=== PATIENT | female | born 1970 | race Caucasian/White ===

== ENCOUNTER 2017-06-08 11:21 | Day surgery (SDC) | payer BC ==
[~2017-06-08 11:21] MED LIST: Acetaminophen TAB* 325 MG PO PRN; Buffered Lidocaine 0.9% SYRIN* 5 ML/SYR SYRINGE INTRADERM ONE; DiMENhydriNATE IV* 50 MG/ML VIAL IV PUSH PRN; Famotidine IV* 10 MG/ML 2 ML (20 mg) IV ONE; Ketorolac INJ* 30 MG/ML 1 ML VIAL ONE; Lidocaine 2% PF * 5 ML VIAL ONE; Midazolam* 1 MG/ML 2 ML VIAL (2 MG) ONE; Naloxone* 0.4 MG/ML 1 ML VIAL IV PRN; Ondansetron INJ* 2 MG/ML VIAL ONE; Propofol* 10 MG/ML 20 ML BTL IV PUSH ONE; fentaNYL* 50 MCG/ML 2 ML VIAL (100 MCG VIAL) ONE
[2017-06-08] MEDS ORDERED: Buffered Lidocaine 0.9% SYRIN* 5 ML/SYR SYRINGE ONE (11:25)
[2017-06-08] MEDS ORDERED: Famotidine IV* 10 MG/ML 2 ML (20 mg) ONE (11:25)
[2017-06-08] MEDS ORDERED: Bupivacaine 0.25% SDV* 30 ML ONE (12:19)
[2017-06-08 13:31] VITALS: BP 116/62
--- NOTE | 2017-06-13 12:29 | OP ---
DATE OF OPERATION: 06/08/17 - [facility] DATE OF : 66 SURGEON: Edwardo Hilliard MD RAILROAD [employer]STRUCTION DIRECTOR: JOSIAS Riley ANESTHESIA: Local MAC. PRE-OP DIAGNOSIS: Right carpal tunnel syndrome. POST-OP DIAGNOSIS: Right carpal tunnel syndrome. OPERATIVE PROCEDURE: Right open carpal tunnel release. INDICATIONS: Marsha has had progressive bilateral carpal tunnel syndrome electrodiagnostically and clinically. She has had nonoperative treatment. We talked about risks and benefits. She wanted to proceed. ESTIMATED BLOOD LOSS: 2 mL. COMPLICATIONS: None. FINDINGS: As expected. DESCRIPTION OF PROCEDURE: Marsha was seen in the preoperative holding area. The correct side, site, and procedure were identified. We came back to the operating room. The arm was prepped and draped in the usual fashion. Marcaine had been injected. I made a 2 to 3 cm longitudinal incision in the standard location for an open carpal tunnel release. Dissection was carried down to the palmar fascia and subcutaneous tissue. The transverse carpal ligament was released just off the radial aspect of the hook of the hamate. The release continued distally and proximally with the tenotomy scissors. Once there was absolutely no compression on the nerve and everything was looking good, we irrigated out the wound. Skin was closed with 4-0 nylon suture. Wound was dressed with Xeroform , 4x4s, sterile Webril, and Mc bandage. She was taken to the recovery room in stable condition. [id number]/[facility] #: [id number] MTDD
== END 2017-06-08 14:35 | disposition home or self-care (01) ==
LOC: OR 11:21
PROVIDERS: ATTEND Orthopaedic Surgery Hand Surgery
DX: G56.01 Carpal tunnel syndrome, right upper limb (principal); Z87.891 Personal history of nicotine dependence; R55 Syncope and collapse; I49.3 Ventricular premature depolarization; F41.8 Other specified anxiety disorders
CPT/HCPCS: 81025; J1885; J2250; J2405; J2704; J3010

== ENCOUNTER 2017-06-29 08:15 | Day surgery (SDC) | payer BC ==
[~2017-06-29 08:15] MED LIST changes: -Acetaminophen TAB* 325 MG PO PRN; -DiMENhydriNATE IV* 50 MG/ML VIAL IV PUSH PRN; -Famotidine IV* 10 MG/ML 2 ML (20 mg) IV ONE; -Ketorolac INJ* 30 MG/ML 1 ML VIAL ONE; -Lidocaine 2% PF * 5 ML VIAL ONE; -Midazolam* 1 MG/ML 2 ML VIAL (2 MG) ONE; -Naloxone* 0.4 MG/ML 1 ML VIAL IV PRN; -Ondansetron INJ* 2 MG/ML VIAL ONE; -Propofol* 10 MG/ML 20 ML BTL IV PUSH ONE; -fentaNYL* 50 MCG/ML 2 ML VIAL (100 MCG VIAL) ONE
[2017-06-29] MEDS ORDERED: fentaNYL* 50 MCG/ML 2 ML VIAL (100 MCG VIAL) ONE (08:57)
[2017-06-29] MEDS ORDERED: Midazolam* 1 MG/ML 2 ML VIAL (2 MG) ONE ×2 (08:57→10:01)
[2017-06-29] MEDS ORDERED: Buffered Lidocaine 0.9% SYRIN* 5 ML/SYR SYRINGE ONE (08:58)
[2017-06-29] MEDS ORDERED: Betamethasone INJ* 6 MG/ML 5 ML VIAL (30 MG) ONE (09:42)
[2017-06-29] MEDS ORDERED: Lidocaine 1% MPF* 2 ML VIAL ONE (09:43)
[2017-06-29] MEDS ORDERED: Bupivacaine 0.25% SDV* 30 ML ONE (09:43)
[2017-06-29] MEDS ORDERED: Famotidine IV* 10 MG/ML 2 ML (20 mg) ONE (10:04)
[2017-06-29] MEDS ORDERED: Propofol* 10 MG/ML 20 ML BTL IV PUSH ONE (10:04)
[2017-06-29] MEDS ORDERED: Ketorolac INJ* 30 MG/ML 1 ML VIAL ONE (10:04)
[2017-06-29] MEDS ORDERED: Dexamethasone IV* 4 MG/ML 1 ML (4 MG) ONE (10:04)
[2017-06-29] MEDS ORDERED: Lidocaine 2% PF * 5 ML VIAL ONE (10:06)
[2017-06-29] MEDS ORDERED: DiMENhydriNATE IV* 50 MG/ML VIAL IV PUSH PRN (10:19)
[2017-06-29] MEDS ORDERED: fentaNYL* 50 MCG/ML 2 ML VIAL (100 MCG VIAL) IV PRN (10:19)
[2017-06-29] MEDS ORDERED: PROCHLORPERAZINE INJ 5 MG/ML 2 ML VIAL IV PRN (10:19)
[2017-06-29] MEDS ORDERED: Naloxone* 0.4 MG/ML 1 ML VIAL IV PRN (10:19)
[2017-06-29] MEDS ORDERED: Acetaminophen TAB* 325 MG PO PRN (10:19)
[2017-06-29 11:40] VITALS: BP 125/76
--- NOTE | 2017-06-30 14:42 | OP ---
DATE OF OPERATION: 06/29/17 - [facility] DATE OF : 66 SURGEON: Edwardo Hilliard MD. SUMMER COUNSELOR: JOSIAS Riley ANESTHESIOLOGIST: Dr. Chambers ANESTHESIA: Local MAC. PRE-OP DIAGNOSES: 1. Left carpal tunnel syndrome. 2. Left trigger thumb. POST-OP DIAGNOSES: 1. Left carpal tunnel syndrome. 2. Left trigger thumb. OPERATIVE PROCEDURE: 1. Left open carpal tunnel release. 2. Left trigger thumb steroid injection. INDICATIONS: Marsha has had progressive disease. Marsha has done well with the right carpal tunnel release. We talked about risks and benefits. She wanted to proceed with left carpal tunnel release. Additionally, she is having pain in the left thumb partially related to basal joint arthritis, but also related to triggering and some tendinitis of the A1 kayla. I talked to her about doing an injection. She wants to proceed. ESTIMATED BLOOD LOSS: 2 mL. COMPLICATIONS: None. FINDINGS: As expected. DESCRIPTION OF PROCEDURE: Marsha was seen in the preoperative holding area. The correct side, site and the procedure were identified. We came back to the operating room where the arm was prepped and draped in the usual fashion. A time- out was performed. I began by exsanguinating the arm with the Esmarch and the tourniquet was inflated to 250 mmHg. I made a 2 to 3 cm incision in standard location for an open carpal tunnel release. Dissection was carried down through the subcutaneous tissue and palmar fascia. The transverse carpal ligament was released just off the radial aspect of the hook of the hamate. The release was completed distally and then proximally. So retractor was placed in the remainder of the transverse carpal ligament and the distal end of brachial fascia was released under direct visualization with the tenotomy scissors to a level of several centimeters past the wrist flexion crease. I then checked the decompression. Everything was looking good. So, we irrigated out the wounds. Skin was closed with 4-0 nylon suture and Steri-Strips. I then injected the A1 kayla of the left thumb with 1 mL of 1% plain lidocaine and 6 mg of betamethasone. The wound was then dressed with Xeroform, 4 x 4s, sterile Webril, and an Mc bandage. She was woken up and taken to the recovery room in stable condition. [id number]/[facility] #: [id number] DIVINA
== END 2017-06-29 12:15 | disposition home or self-care (01) ==
LOC: OR 08:15
PROVIDERS: ATTEND Orthopaedic Surgery Hand Surgery
DX: G56.02 Carpal tunnel syndrome, left upper limb (principal); M65.312 Trigger thumb, left thumb; R55 Syncope and collapse; Z87.891 Personal history of nicotine dependence; R00.1 Bradycardia, unspecified
CPT/HCPCS: 81025; J0702; J1100; J1885; J2250; J2704; J3010

== ENCOUNTER 2022-05-01 00:06 | Observation (INO) ==
[2022-05-01] MEDS ORDERED: Al Hydrox/Mg Hydrox/Simet LIQ 30 ML UDC PO ONE (00:24)
[2022-05-01] MEDS ORDERED: Ondansetron 4 mg VIAL 2 MG/ML 2 ml VIAL IV ONE (00:24)
[2022-05-01] MEDS ORDERED: Lactated Ringers 1000 ml BAG 1,000 ML IV ONE (00:24)
[2022-05-01] MEDS ORDERED: Famotidine IV 10 MG/ML 2 ml VIAL (20 mg) IV SLOW PU ONE (00:24)
[2022-05-01] MEDS ORDERED: Acetaminophen IV 1 GM/100ML 1,000 MG/100 ML BAG IV ONE (00:25)
[2022-05-01 01:04] LABS: ABS Lymphocytes 1.4 10^3/ul (1.0-4.8); ABS Monocytes 0.6 10^3/ul (0-0.8); ABS Neutrophils 13.8 10^3/ul (1.5-7.7); Eosinophil % 0.2 %; Hematocrit 39 % (35-47); Hemoglobin 13.2 g/dL (12.0-16.0); Mean Corpuscular HGB Conc 34 g/dL (31-36); Mean Corpuscular Hemoglobin 27 pg (27-31); Mean Corpuscular Volume 81 fL (80-97); Mean Platelet Volume 10.1 fL (7.4-10.4); Platelet Count 212 10^3/uL (150-450); Red Blood Count 4.82 10^6 /uL (3.70-4.87); Red Cell Distribution Width 13 % (10-15); White Blood Count 15.9 10^3/uL (3.5-10.8)
[2022-05-01 01:09] LABS: INR 1.04 (0.88-1.18)
[2022-05-01 01:42] LABS: Albumin 4.1 g/dL (3.2-5.2); Albumin/Globulin Ratio 1.6 (1-3); C Reactive Protein 5.8 mg/L (<8.01); Calcium 9.2 mg/dL (8.6-10.3); Creatinine, Serum 0.69 mg/dL (0.51-0.95); Globulin 2.5 g/dL (2-4); Magnesium 1.7 mg/dL (1.9-2.7); Potassium 4.2 mmol/L (3.5-5.0); Total Bilirubin 0.8 mg/dL (0.2-1.0); Total Protein 6.6 g/dL (6.4-8.9); eGFR CKD-EPI 103.1 (>60)
[2022-05-01] MEDS ORDERED: Magnesium Sulfate IV 3 GM in NS 0.9% 100 ml BAG 100 ML IVPB ONE (03:23)
[2022-05-01] MEDS ORDERED: NS 0.9% 1000 ml BAG 1,000 ML IV SCH (03:30)
[2022-05-01] MEDS: Acetaminophen IV 1 GM/100ML 1,000 MG/100 ML BAG IV SCH ×2 (07:35→13:36)
[2022-05-01] MEDS ORDERED: Pantoprazole VIAL 40 MG VIAL IV SCH (09:00)
[2022-05-01 11:28] VITALS: BP 124/84
== END 2022-05-01 17:15 | disposition home or self-care (01) ==
LOC: ED 00:06 → SUATTDRO 03:18 → INTOOBSV 03:18 → EDHOLD 03:18 → SSU 05:32
PROVIDERS: ADMIT Internal Medicine; ATTEND Internal Medicine

== ENCOUNTER 2022-06-03 20:49 | Observation (INO) ==
[2022-06-03] MEDS ORDERED: Ondansetron 4 mg VIAL 2 MG/ML 2 ml VIAL IV ONE (21:16)
[2022-06-03 21:29] LABS: ABS Eosinophils 0.2 10^3/ul (0-0.6); ABS Lymphocytes 2.8 10^3/ul (1.0-4.8); ABS Monocytes 0.6 10^3/ul (0-0.8); ABS Neutrophils 3.6 10^3/ul (1.5-7.7); Eosinophil % 2.8 %; Hematocrit 39 % (35-47); Hemoglobin 13.2 g/dL (12.0-16.0); Lymphocyte % 38.4 %; Mean Corpuscular HGB Conc 34 g/dL (31-36); Mean Corpuscular Hemoglobin 27 pg (27-31); Mean Corpuscular Volume 81 fL (80-97); Mean Platelet Volume 9.8 fL (7.4-10.4); Platelet Count 251 10^3/uL (150-450); Red Blood Count 4.84 10^6 /uL (3.70-4.87); Red Cell Distribution Width 13 % (10-15); White Blood Count 7.2 10^3/uL (3.5-10.8)
[2022-06-03 22:23] LABS: Albumin 4.4 g/dL (3.2-5.2); Albumin/Globulin Ratio 1.5 (1-3); C Reactive Protein 4.3 mg/L (<8.01); Calcium 9.5 mg/dL (8.6-10.3); Creatinine, Serum 0.66 mg/dL (0.51-0.95); Globulin 2.9 g/dL (2-4); Potassium 4.1 mmol/L (3.5-5.0); Total Bilirubin 0.5 mg/dL (0.2-1.0); Total Protein 7.3 g/dL (6.4-8.9); eGFR CKD-EPI 104.2 (>60)
[2022-06-03] MEDS ORDERED: Morphine 4 MG/ML VIAL (1 ml) IV ONE (23:30)
[2022-06-03] MEDS ORDERED: Metoclopramide 5 MG/ML VIAL (10 mg) IV ONE (23:31)
[2022-06-03] MEDS ORDERED: Metoclopramide 5 MG/ML VIAL (10 mg) ONE (23:33)
[2022-06-03] MEDS ORDERED: Lactated Ringers 1000 ml BAG 1,000 ML IV ONE (23:43)
[2022-06-04] MEDS ORDERED: Lactated Ringers 1000 ml BAG 1,000 ML IV ONE (01:15)
[2022-06-04] MEDS ORDERED: Acetaminophen IV 1 GM/100ML 1,000 MG/100 ML BAG IV PRN (02:22)
[2022-06-04] MEDS ORDERED: Ondansetron 4 mg VIAL 2 MG/ML 2 ml VIAL IV PRN (02:23)
[2022-06-04 06:54] LABS: Urine Appearance CLEAR; Urine Color Yellow; Urine Specific Gravity 1.018 (1.002-1.030)
[2022-06-04 06:55] LABS: Urine Bilirubin Negative (Negative); Urine Blood 1+ (Negative); Urine Ketones Negative (Negative); Urine Nitrite Negative (Negative)
[2022-06-04 06:56] LABS: Urine Glucose Negative (Negative); Urine Protein Negative (Negative); Urine Red Blood Cell 1+(3-5/hpf) (Absent); Urine Squamous Epithelial Cell Present (Absent); Urine Urobilinogen Negative (Negative); Urine White Blood Cell Trace(0-5/hpf) (Absent)
[2022-06-04 07:09] LABS: Urine Bacteria Absent (Absent)
[2022-06-04 07:47] LABS: ABS Eosinophils 0.1 10^3/ul (0-0.6); ABS Lymphocytes 2.3 10^3/ul (1.0-4.8); ABS Monocytes 0.6 10^3/ul (0-0.8); ABS Neutrophils 5.1 10^3/ul (1.5-7.7); Eosinophil % 1.6 %; Hematocrit 37 % (35-47); Hemoglobin 12.6 g/dL (12.0-16.0); Lymphocyte % 28.3 %; Mean Corpuscular HGB Conc 34 g/dL (31-36); Mean Corpuscular Hemoglobin 28 pg (27-31); Mean Corpuscular Volume 81 fL (80-97); Mean Platelet Volume 9.7 fL (7.4-10.4); Platelet Count 228 10^3/uL (150-450); Red Blood Count 4.55 10^6 /uL (3.70-4.87); Red Cell Distribution Width 13 % (10-15); White Blood Count 8.1 10^3/uL (3.5-10.8)
[2022-06-04 08:37] LABS: Creatinine, Serum 0.63 mg/dL (0.51-0.95); Potassium 4.2 mmol/L (3.5-5.0); eGFR CKD-EPI 105.4 (>60)
[2022-06-04 15:35] VITALS: BP 120/76
== END 2022-06-04 19:30 | disposition home or self-care (01) ==
LOC: ED 20:49 → EDHOLD 20:49 → SUATTDRO 06-04 00:26 → EDHOLD 06-04 08:52 → MED 06-04 09:02
PROVIDERS: ADMIT Internal Medicine; ATTEND Hospitalist

== ENCOUNTER 2024-03-08 06:27 | Inpatient (IN) ==
[2024-03-08] MEDS: Lactated Ringers 1000 ml BAG 1,000 ML IV ONE (07:16)
[2024-03-08] MEDS: Ondansetron 4 mg VIAL 2 MG/ML 2 ml VIAL IV ONE (07:16)
[2024-03-08] MEDS: Morphine 4 MG/ML VIAL (1 ml) IV ONE (07:16)
[2024-03-08 08:07] LABS: ABS Basophils 0.1 10^3/uL (0.0-0.1); ABS Eosinophils 0.1 10^3/uL (0.0-0.5); ABS Lymphocytes 1.9 10^3/uL (1.0-4.8); ABS Monocytes 0.9 10^3/uL (0.0-0.9); ABS Neutrophils 13.1 10^3/uL (1.5-7.6); Eosinophil % 0.9 %; Hematocrit 34.9 % (35-45); Hemoglobin 11.1 g/dL (11.5-14.3); Lymphocyte % 11.6 %; Mean Corpuscular Hemoglobin 24.8 pg (27-33); Mean Corpuscular Hgb Conc 31.8 g/dL (31-36); Mean Platelet Volume 9.4 fL (7.5-11.2); Platelet Count 245 10^3/uL (150-450); Red Blood Count 4.47 10^6/uL (3.63-4.92); Red Cell Distribution Width 16.5 % (12-17); White Blood Count 16.1 10^3/uL (3.8-11.8)
[2024-03-08 08:49] LABS: Albumin 3.9 g/dL (3.2-5.2); Albumin/Globulin Ratio 1.7 (1-3); Calcium 9.3 mg/dL (8.6-10.3); Creatinine, Serum 0.69 mg/dL (0.51-0.95); Globulin 2.3 g/dL (2-4); Potassium 3.7 mmol/L (3.5-5.0); Total Bilirubin 0.5 mg/dL (0.2-1.0); Total Protein 6.2 g/dL (6.4-8.9); eGFR CKD-EPI 101.8 (>60)
[2024-03-08] MEDS: Lactated Ringers 1000 ml BAG 1,000 ML IV SCH (09:59)
[2024-03-08] MEDS: Morphine 2 MG/ML SYRINGE IV PRN ×2 (10:16→12:00)
[2024-03-08] MEDS: Ondansetron 4 mg VIAL 2 MG/ML 2 ml VIAL IV PRN (10:16)
[2024-03-08 10:31] LABS: Urine Appearance Clear; Urine Bilirubin Negative (Negative); Urine Blood Negative (Negative); Urine Color Yellow; Urine Glucose Negative (Negative); Urine Ketones Negative (Negative); Urine Nitrite Negative (Negative); Urine Protein Negative (Negative); Urine Specific Gravity 1.023 (1.002-1.030); Urine Urobilinogen Negative (Negative)
[2024-03-08] MEDS ORDERED: Morphine 2 MG/ML SYRINGE IV PRN ×2 (13:54)
[2024-03-09 09:06] LABS: ABS Eosinophils 0.3 10^3/uL (0.0-0.5); ABS Lymphocytes 2.6 10^3/uL (1.0-4.8); ABS Monocytes 0.6 10^3/uL (0.0-0.9); ABS Neutrophils 3.7 10^3/uL (1.5-7.6); Eosinophil % 3.8 %; Hematocrit 30.4 % (35-45); Hemoglobin 9.8 g/dL (11.5-14.3); Lymphocyte % 36.3 %; Mean Corpuscular Hemoglobin 25.2 pg (27-33); Mean Corpuscular Hgb Conc 32.2 g/dL (31-36); Mean Corpuscular Volume 78.1 fL (80-97); Mean Platelet Volume 9.3 fL (7.5-11.2); Platelet Count 213 10^3/uL (150-450); Red Blood Count 3.89 10^6/uL (3.63-4.92); Red Cell Distribution Width 16.6 % (12-17); White Blood Count 7.1 10^3/uL (3.8-11.8)
[2024-03-09 09:58] LABS: Calcium 8.5 mg/dL (8.6-10.3); Creatinine, Serum 0.61 mg/dL (0.51-0.95); Magnesium 1.7 mg/dL (1.9-2.7); Potassium 3.8 mmol/L (3.5-5.0); eGFR CKD-EPI 104.9 (>60)
[2024-03-09] MEDS: Magnesium Sulfate 2 gm BAG 2 GM/50 ML BAG IVPB ONE (12:11)
[2024-03-09 12:17] LABS: Ferritin 7.2 ng/mL (11-307)
[2024-03-09] MEDS: methylPREDNISolone SOD SUCC 40 mg/ml 1 ml VIAL IV SCH ×2 (14:46→21:26)
[2024-03-10 09:13] LABS: ABS Lymphocytes 0.9 10^3/uL (1.0-4.8); ABS Monocytes 0.2 10^3/uL (0.0-0.9); ABS Neutrophils 6.3 10^3/uL (1.5-7.6); Lymphocyte % 11.7 %; Mean Corpuscular Hgb Conc 32.3 g/dL (31-36); Mean Corpuscular Volume 77.4 fL (80-97); Mean Platelet Volume 9.6 fL (7.5-11.2); Platelet Count 240 10^3/uL (150-450); Red Cell Distribution Width 16.5 % (12-17); White Blood Count 7.3 10^3/uL (3.8-11.8)
[2024-03-10 10:08] LABS: Albumin 4.1 g/dL (3.2-5.2); Albumin/Globulin Ratio 1.6 (1-3); C Reactive Protein 33.64 mg/L (<8.01); Calcium 9.6 mg/dL (8.6-10.3); Creatinine, Serum 0.56 mg/dL (0.51-0.95); Globulin 2.5 g/dL (2-4); Potassium 4.2 mmol/L (3.5-5.0); Total Bilirubin 0.5 mg/dL (0.2-1.0); Total Protein 6.6 g/dL (6.4-8.9)
[2024-03-10] MEDS: Gadoteridol (CONTRAST) 279.3 MG/ML 10 ML IV ONE (12:15)
[2024-03-10] MEDS: Glucagon 1 mg VIAL KIT ONE (13:04)
[2024-03-10] MEDS: methylPREDNISolone SOD SUCC 40 mg/ml 1 ml VIAL IV SCH (17:46)
[2024-03-11] MEDS: Ferric Gluconate IV 250 MG in NS 0.9% 250 ml 200 ML IVPB ONE (11:59)
[2024-03-11 18:00] VITALS: BP 144/96
[2024-03-11 18:40] LABS: ABS Monocytes 0.5 10^3/uL (0.0-0.9); ABS Neutrophils 11.3 10^3/uL (1.5-7.6); Hematocrit 30.1 % (35-45); Hemoglobin 9.7 g/dL (11.5-14.3); Lymphocyte % 7.6 %; Mean Corpuscular Hemoglobin 25.2 pg (27-33); Mean Corpuscular Hgb Conc 32.4 g/dL (31-36); Mean Corpuscular Volume 77.9 fL (80-97); Mean Platelet Volume 9.7 fL (7.5-11.2); Platelet Count 282 10^3/uL (150-450); Red Blood Count 3.86 10^6/uL (3.63-4.92); Red Cell Distribution Width 16.3 % (12-17); White Blood Count 12.8 10^3/uL (3.8-11.8)
[2024-03-11 19:41] LABS: Albumin 4.2 g/dL (3.2-5.2); Albumin/Globulin Ratio 1.9 (1-3); C Reactive Protein 10.49 mg/L (<8.01); Calcium 9.8 mg/dL (8.6-10.3); Creatinine, Serum 0.6 mg/dL (0.51-0.95); Globulin 2.2 g/dL (2-4); Potassium 4.3 mmol/L (3.5-5.0); Total Bilirubin 0.3 mg/dL (0.2-1.0); Total Protein 6.4 g/dL (6.4-8.9); eGFR CKD-EPI 105.3 (>60)
[2024-03-14 18:39] LABS: Calprotectin 56.6 mcg/g
== END 2024-03-11 18:35 | disposition home or self-care (01) | DRG 387 ==
LOC: EDHOLD 06:27 → ED 06:27 → SSU 11:30
PROVIDERS: ADMIT Student in an Organized Health Care Education/Training Program; ATTEND Student in an Organized Health Care Education/Training Program